=== PATIENT | female | born 1960 | race Caucasian/White ===

== ENCOUNTER → 2017-01-27 | Outpatient (CLI) | payer OTHER ==
--- NOTE | 2017-01-28 11:15 | MM ---
Reason for exam: screening (asymptomatic). Last mammogram was performed 1 year and 7 months ago. History: Patient is postmenopausal. Family history of breast cancer in mother at age 72. Taking progesterone for 9 years. Physical Findings: A clinical breast exam by your physician is recommended on an annual basis and results should be correlated with mammographic findings. MG Screening Mammo w CAD Bilateral CC and MLO view(s) were taken. Prior study comparison: June 19, 2015, bilateral MG screening mammo w CAD. September 06, 2013, bilateral digital screening mammo w/CAD. The breast tissue is heterogeneously dense. This may lower the sensitivity of mammography. No significant changes when compared with prior studies. ASSESSMENT: Benign, BI-RAD 2 RECOMMENDATION: Routine screening mammogram of both breasts in 1 year.
== END | disposition home or self-care (01) ==
LOC: RADMAMWWP 15:55
PROVIDERS: ATTEND Family Medicine
DX: Z12.31 Encounter for screening mammogram for malignant neoplasm of breast (principal)

== ENCOUNTER → 2017-03-20 | Outpatient (CLI) | payer OTHER ==
--- NOTE | 2017-03-20 16:06 | US ---
EXAMINATION TYPE: US thyroid st tissue head/neck DATE OF EXAM: 03/20/2017 COMPARISON: CLINICAL HISTORY: E04.2 Thyroid Nodule,E03.9 Thyroid Goiter. follow up nodules. hx of bx- wnl GLAND SIZE: Right Lobe: 4.9 x 2.3 x 1.8 cm Overall Parenchyma: heterogenous Left Lobe: 4.3 x 1.4 x 1.8 cm Overall Parenchyma: heterogeneous Isthmus Thickness: 1.2 cm NODULES RIGHT: # of nodules measured on right: 3 1. 1.0 X 1.0 x 0.9 cm hypoechoic mixed nodule at the upper pole with poorly defined margins. This nodule is wider than tall and shows intranodular vascularity. Prior size: 1.7 x 1.0 x 1.3 cm 2. 1.9 X 1.7 x 1.6 cm hypoechoic mixed nodule at the lower pole with poorly defined margins. This n odule is taller than wide and shows intranodular vascularity. Prior size: 1.5 x 1.0 x 1.7 cm 3. 1.0 X 0.7 x 0.8 cm echogenic solid nodule at the mid pole with poorly defined margins. This nodu le is taller than wide and shows peripheral vascularity. Prior size: 0.7 x 0.5 x 0.8 cm 4. Previous nodule not seen LEFT: # of nodules measured on left: 1 1. 1.3 X 0.9 x 0.6 cm hypoechoic mixed nodule at the lower pole with well-defined margins. This no dule is taller than wide and shows no intranodular vascularity. Prior size: not seen ISTHMUS: # of nodules measured in the isthmus: 1 1. 2.2 X 1.8 x 1.0 cm hypoechoic solid nodule at the mid pole with well-defined margins. This nodu le is taller than wide and shows intranodular vascularity. Prior size: 1.7 cm Bilateral neck scanned, no evidence of lymphadenopathy. IMPRESSION: Right lobe of the gland is diffusely heterogeneous, accurate assessment of nodule size is somewhat li mited, findings suggest multinodular goiter. There may be some interval increase in size in the domin ant right lobe nodule and isthmus nodule. Left lobe nodule is likely new.
== END | disposition home or self-care (01) ==
LOC: RADUSWWP 13:49
PROVIDERS: ATTEND Internal Medicine Endocrinology, Diabetes & Metabolism
DX: E04.2 Nontoxic multinodular goiter (principal)
CPT/HCPCS: 76536

== ENCOUNTER 2017-04-25 12:22 | Day surgery (SDC) | payer OTHER ==
--- NOTE | 2017-04-25 14:04 | US ---
ULTRASOUND GUIDED FNA THYROID BIOPSY: CLINICAL HISTORY: Request for a 1.9 cm right and 1.3 cm left thyroid nodule FINDINGS: The procedure was explained to the patient. The risks, complications, benefits and alternatives were discussed and any questions were answered. Informed consent was obtained. Patient was placed supin e on the ultrasound table and prepped and draped in the usual sterile fashion. Utilizing a 25 gauge needle, five passes were made into the each of the 2 requested nodules. Patient was stable throughout the procedure. Pathology is pending. All elements of maximal barrier technique were utilized. IMPRESSION: 1. Successful ultrasound guided FNA thyroid biopsy.
[2017-04-25 14:10] VITALS: RESP 16; TEMP 98.1
[2017-04-25 14:11] VITALS: BP 134/74
[2017-04-25 14:12] VITALS: PULSE 74
== END 2017-04-25 13:45 | disposition home or self-care (01) ==
LOC: RADPROMAIN 12:22
PROVIDERS: ATTEND Internal Medicine Endocrinology, Diabetes & Metabolism
DX: E04.2 Nontoxic multinodular goiter (principal); E03.9 Hypothyroidism, unspecified; E06.3 Autoimmune thyroiditis; E66.3 Overweight
CPT/HCPCS: 10022; 76942; 88173; 88305

== ENCOUNTER → 2017-12-23 | Outpatient (CLI) | payer OTHER ==
[2017-12-23 17:12] LABS: T4, Free (Free Thyroxine) 1.44 ng/dL (0.78-2.19)
== END | disposition home or self-care (01) ==
LOC: LABWHC1 15:52
PROVIDERS: ATTEND Internal Medicine Endocrinology, Diabetes & Metabolism
DX: E04.2 Nontoxic multinodular goiter (principal); E03.9 Hypothyroidism, unspecified; E06.3 Autoimmune thyroiditis; E66.3 Overweight
CPT/HCPCS: 36415; 84439; 84443

== ENCOUNTER → 2018-01-12 | Outpatient (CLI) | payer OTHER ==
--- NOTE | 2018-01-12 10:55 | US ---
EXAMINATION TYPE: US thyroid st tissue head/neck DATE OF EXAM: 01/12/2018 COMPARISON: US 2017 CLINICAL HISTORY: E03.9 Hypothyroidism,E06.3 Autoimmune thyroiditis. Follow up thyroid nodules, histo ry of multiple biopsies, on thyroid meds x 10 years. GLAND SIZE: Right Lobe: 5.2 x 1.7 x 2.2 cm Overall Parenchyma: heterogenous Left Lobe: 4.3 x 1.5 x 1.2 cm Overall Parenchyma: heterogeneous Isthmus Thickness: 0.6 cm NODULES RIGHT: # of nodules measured on right: 4 1. 1.1 X 0.8 x 0.9 cm hypoechoic mixed nodule at the lower pole with poorly defined margins. This n odule is wider than tall and shows intranodular vascularity. Prior size: 1.0 x 1.0 x 0.9 cm 2. 1.7 X 1.2 x 1.7 cm hypoechoic mixed nodule at the lower pole with poorly defined margins. This no dule is wider than tall and shows intranodular vascularity. Prior size: 1.9 x 1.7 x 1.6 cm 3. Previously biopsied- 1.0 X 0.7 x 0.8 cm echogenic solid nodule at the mid pole with poorly define d margins. This nodule is wider than tall and shows peripheral vascularity. Prior size: 1.0 x 0.7 x 0.8 cm 4. 0.7 X 0.5 x 0.7 cm hypoechoic mixed nodule at the lower pole with well-defined margins. This nodu le is wider than tall and shows no intranodular vascularity. Prior size: no previous LEFT: # of nodules measured on left: 0 1. previous nodule not seen on today's exam but has been previously biopsied. ISTHMUS: # of nodules measured in the isthmus: 1 1. 1.9 X 1.0 x 1.6 cm hypoechoic solid nodule at the mid pole with well-defined margins. This nodul e is wider than tall and shows intranodular vascularity. Prior size: 2.2 x 1.8 x 1.0 cm Bilateral neck scanned, no evidence of lymphadenopathy. IMPRESSION: Similar size of the bilateral thyroid nodules in comparison to the prior of 03/20/2017, 2 of which hav e been previously biopsied, with a solitary new subcentimeter right thyroid nodule in the setting of a multinodular goiter. Continued surveillance is recommended.
== END | disposition home or self-care (01) ==
LOC: RADUSWWP 09:39
PROVIDERS: ATTEND Internal Medicine Endocrinology, Diabetes & Metabolism
DX: E04.2 Nontoxic multinodular goiter (principal)
CPT/HCPCS: 76536

== ENCOUNTER 2018-03-26 08:34 | Day surgery (SDC) | payer OTHER ==
[2018-03-24 14:26] VITALS: BMI 25.0
[~2018-03-26 08:34] MED LIST: LACTATED RINGERS 1,000 ML IV SCH
[2018-03-26 09:42] VITALS: RESP 16; TEMP 97
[2018-03-26] MEDS ORDERED: LIDOCAINE 1% 20 ML VIAL (10MG/ML) FOR IV START INTRADERMA ONE (09:45)
[2018-03-26] MEDS ORDERED: PROPOFOL 10 MG/ML 20 ML VIAL IV ONE (10:32)
[2018-03-26] MEDS ORDERED: LIDOCAINE 1% INJ 10MG/ML (20 ML MDV) ONE (10:32)
--- NOTE | 2018-03-26 11:04 | P.PCN ---
Date of Procedure: 03/26/18 Procedure(s) Performed: Procedure: Total colonoscopy. Preoperative diagnosis: Positive cologuard test. Postoperative diagnosis: Sigmoid diverticulosis with no evidence of acute diverticulitis, strictures, polyps or cancer. Preparation: HalfLytely prep. Sedation: Was provided by anesthesia. Brief clinical history: The patient is a 57-year-old female who is scheduled for this evaluation because of finding of positive cologuard test. She had a prior colonoscopy around 10 years ago. The patient has no overt bleeding. She has no abdominal complaints or change in bowel habits or anemia. Procedure: With the patient on her left lateral decubitus position and after informed consent and adequate sedation, the perianal area was inspected and it did not show any fissures or fistulas. There were no masses felt on digital rectal examination. The Olympus CFQ 160L video colonoscope was then inserted in the rectum in the usual fashion and advanced to the cecum. There were several diverticular orifices seen scattered in the sigmoid but I saw no evidence of acute diverticulitis or strictures. No polyps or tumors were seen. The mucosa appeared healthy. I retroflexed the endoscope in the rectum before the endoscope was withdrawn The patient tolerated the procedure well. Plan: The patient was reassured. Discussed dietary measures. She will follow- up with you as planned. In the absence of upper GI complaints or anemia, I did not recommend upper GI workup at this time for further workup of her Hemoccult positive stools and that can be kept as a contingency based on her course. She will follow-up with you as planned and I recommended repeat colonoscopy in 10 years.
[2018-03-26 11:29] VITALS: BP 142/90; PULSE 76
== END 2018-03-26 11:45 | disposition home or self-care (01) ==
LOC: ORWHC2ENDO 08:34
DX: K57.30 Diverticulosis of large intestine without perforation or abscess without bleeding (principal); R19.5 Other fecal abnormalities; M19.90 Unspecified osteoarthritis, unspecified site; E07.9 Disorder of thyroid, unspecified; Z79.890 Hormone replacement therapy; Z79.899 Other long term (current) drug therapy; Z88.6 Allergy status to analgesic agent; Z88.8 Allergy status to other drugs, medicaments and biological substances; Z90.710 Acquired absence of both cervix and uterus
CPT/HCPCS: 45378; J2001; J2704

== ENCOUNTER → 2018-03-31 | Outpatient (CLI) | payer OTHER ==
--- NOTE | 2018-04-02 11:55 | MM ---
Reason for exam: screening (asymptomatic). Last mammogram was performed 1 year and 2 months ago. History: Patient is postmenopausal. Family history of breast cancer in mother at age 72. Taking progesterone for 9 years. Physical Findings: A clinical breast exam by your physician is recommended on an annual basis and results should be correlated with mammographic findings. MG Screening Mammo w CAD Bilateral CC and MLO view(s) were taken. Prior study comparison: January 27, 2017, bilateral MG screening mammo w CAD. June 19, 2015, bilateral MG screening mammo w CAD. The breast tissue is heterogeneously dense. This may lower the sensitivity of mammography. There is no discrete abnormality. No significant changes when compared with prior studies. ASSESSMENT: Negative, BI-RAD 1 RECOMMENDATION: Routine screening mammogram of both breasts in 1 year.
== END | disposition home or self-care (01) ==
LOC: RADMAMWWP 08:24
PROVIDERS: ATTEND Obstetrics & Gynecology
DX: Z12.31 Encounter for screening mammogram for malignant neoplasm of breast (principal); Z80.3 Family history of malignant neoplasm of breast
CPT/HCPCS: 77067

== ENCOUNTER → 2019-03-17 | Outpatient (CLI) | payer OTHER ==
--- NOTE | 2019-03-17 11:39 | P.STRESS ---
- Stress Test Note Stress Test Results/Findings: Exam Performed: stress test Exam Date: 03/17/19 Reason for Exam: CHEST PAIN Height: 5 ft 6 in Weight: 75.75 kg Protocol: LUCAS Stage: 3 Duration of Exercise: 8:00 Resting Heart Rate: 79 Resting Blood Pressure: 126/73 Maximum Achieved Heart Rate: 144 Maximum Achieved Blood Pressure: 195/78 85% PMHR: 136 100% PMHR: 160 METS: 9.7 Technologist Comment: Stress Test Results/Findings: Baseline heart rate 79 beats a minute, Baseline blood pressure 126/73 mmHg baseline 12-lead ECG shows sinus rhythm with normal cardiac intervals Patient exercised on a Lucas protocol for 8 minutes, achieving a peak heart rate 144 beats a minute normal blood pressure response to exercise There was no ECG evidence for ischemia no arrhythmias were noted Impression Average exercise capacity no ECG changes for ischemia.
== END | disposition home or self-care (01) ==
LOC: RADNMMAIN 08:43
PROVIDERS: ATTEND Family Medicine
DX: R07.9 Chest pain, unspecified (principal)
CPT/HCPCS: 93017

== ENCOUNTER → 2019-04-29 | Outpatient (CLI) | payer OTHER ==
--- NOTE | 2019-05-03 10:41 | MM ---
Reason for exam: screening (asymptomatic). Last mammogram was performed 1 year and 1 month ago. History: Patient is postmenopausal. Family history of breast cancer in mother at age 72. Taking progesterone for 9 years. Physical Findings: A clinical breast exam by your physician is recommended on an annual basis and results should be correlated with mammographic findings. MG Screening Mammo w CAD Bilateral CC and MLO view(s) were taken. Prior study comparison: March 31, 2018, bilateral MG screening mammo w CAD. January 27, 2017, bilateral MG screening mammo w CAD. There are scattered fibroglandular densities. Focal asymmetry left upper MLO view, stable. No significant changes when compared with prior studies. ASSESSMENT: Benign, BI-RAD 2 RECOMMENDATION: Routine screening mammogram of both breasts in 1 year.
== END ==
LOC: RADMAMWWP 11:52
PROVIDERS: ATTEND Family Medicine
DX: Z12.31 Encounter for screening mammogram for malignant neoplasm of breast (principal)
CPT/HCPCS: 77067

== ENCOUNTER → 2020-01-12 | Outpatient (CLI) | payer OTHER ==
--- NOTE | 2020-01-12 17:23 | US ---
EXAMINATION TYPE: US thyroid st tissue head/neck DATE OF EXAM: 01/12/2020 COMPARISON: US 01/12/2018 CLINICAL HISTORY: E03.9Hypothyroidism, unspecified, E06.3, E66.8. Difficult exam. Prior thyroid bx GLAND SIZE: Right Lobe: 5.2 x 1.7 x 1.9 cm Overall Parenchyma: heterogenous Left Lobe: 4.2 x 1.3 x 0.9 cm Overall Parenchyma: heterogeneous Isthmus Thickness: 0.4 cm NODULES RIGHT: # of nodules measured on right: Attempted to follow previous ultrasound(2018), however thing s looked different on today's exam. Multinodular goiter, nodule boarders difficult to visualized, dif fusely heterogeneous 1. 1.7 X 1.4 x 1.2 cm isoechoic solid nodule at the mid pole with poorly defined margins; . This no dule is wider than tall and shows intranodular vascularity. 2. 1.4 X 0.9 x 1.0 cm hypoechoic mixed nodule at the upper pole with poorly defined margins; . Thi s nodule is wider than tall and shows intranodular vascularity. 3. 1.1 X 1.0 x 1.0 cm hypoechoic mixed nodule at the lower pole with well-defined margins; . This n odule is wider than tall and shows no intranodular vascularity. 4. 1.0 X 0.9 x 1.0 cm isoechoic solid nodule at the mid pole with poorly defined margins; . This no dule is and shows intranodular vascularity. LEFT: # of nodules measured on left: 1 1. 0.5 X 0.4 x 0.4 cm hypoechoic cystic nodule at the mid pole with well-defined margins; . This n odule is wider than tall and shows no intranodular vascularity. Prior size: No previous ISTHMUS: # of nodules measured in the isthmus: 1 1. 2.0 X 1.0 x 1.3 cm hypoechoic solid nodule at the mid pole with well-defined margins; . This no dule is wider than tall and shows intranodular vascularity. Prior size: 1.9 x 1.0 x 1.6 cm Bilateral neck scanned, no evidence of lymphadenopathy. IMPRESSION: Findings consistent with multinodular goiter remain present with overall heterogeneous no rmal size thyroid redemonstrating multiple nodules up to 2.0 cm in size.
== END | disposition home or self-care (01) ==
LOC: RADUSWWP 14:51
PROVIDERS: ATTEND Internal Medicine Endocrinology, Diabetes & Metabolism
DX: E04.2 Nontoxic multinodular goiter (principal); E66.8 Other obesity
CPT/HCPCS: 76536

== ENCOUNTER → 2020-03-02 | Outpatient (CLI) | payer OTHER ==
[2020-03-02 23:37] LABS: T4, Free (Free Thyroxine) 1.5 ng/dL (0.80-1.80)
== END | disposition home or self-care (01) ==
LOC: LABWHC1 13:44
PROVIDERS: ATTEND Internal Medicine Endocrinology, Diabetes & Metabolism
DX: E03.9 Hypothyroidism, unspecified (principal); E04.2 Nontoxic multinodular goiter; E66.3 Overweight
CPT/HCPCS: 36415; 84439; 84443

== ENCOUNTER → 2020-07-12 | Outpatient (CLI) | payer OTHER ==
[2020-07-12 16:31] LABS: T4, Free (Free Thyroxine) 1.51 ng/dL (0.78-2.19)
--- NOTE | 2020-07-13 05:06 | US ---
EXAMINATION TYPE: US thyroid st tissue head/neck DATE OF EXAM: 07/12/2020 COMPARISON: 01/12/2020 CLINICAL HISTORY: 59-year-old female E03.9 Hypothyroidism unspecified. TECHNIQUE: Multiple sonographic images of the thyroid gland are obtained. FINDINGS: GLAND SIZE: Right Lobe: 4.7 x 1.7 x 1.8 cm Overall Parenchyma: Heterogeneous Left Lobe: 4.4 x 1.7 x 1.2 cm Overall Parenchyma: heterogeneous Isthmus Thickness: 7.9 mm NODULES RIGHT: # of nodules measured on right: 4 1. 1.7 X 1.6 x 1.1 cm solid or almost completely solid, isoechoic nodule, which is wider than tall, with ill-defined margins, without echogenic foci. Prior size: 1.7 x 1.4 x 1.2 cm 2. 1.2 X 0.8 x 1.1 cm solid or almost completely solid, isoechoic nodule, which is wider than tall, with ill-defined margins, without echogenic foci. Prior size: 1.4 x 0.9 x 1.0 cm 3. 1.3 X 1.1 x 1.3 cm spongiform, anechoic nodule, which is wider than tall, with smooth margins, w ithout echogenic foci. Prior size: 1.1 x 1.0 x 1.0 cm 4. 1.0 X 0.9 x 0.9 cm mixed cystic and solid, heterogeneous nodule, which is as tall as it is wide, with ill-defined margins, without echogenic foci. Prior size: 1.0 x 0.9 x 1.0 cm LEFT: # of nodules measured on left: 0 subcentimeter cyst noted ISTHMUS: 1. 2.0 X 1.1 x 0.9 cm solid or almost completely solid, anechoic nodule, which is taller than wide, w ith smooth margins, without echogenic foci. Prior size: 2.0 x 1.0 x 1.3 cm Bilateral neck scanned, no evidence of lymphadenopathy. IMPRESSION: 1. Findings likely represent multinodular goiter. 4 nodules measured on the right are not significant ly changed, largest measuring 1.7 x 1.6 cm (versus 1.7 x 1.4 cm, previously). 2. The solid isthmic nodule measuring 2.0 x 1.1 cm is also unchanged (2.0 x 1.3 cm, previously).
== END | disposition home or self-care (01) ==
LOC: RADUSWWP 15:03
PROVIDERS: ATTEND Internal Medicine Endocrinology, Diabetes & Metabolism
DX: E04.2 Nontoxic multinodular goiter (principal); E03.9 Hypothyroidism, unspecified; E66.3 Overweight
CPT/HCPCS: 76536; 84439; 84443

== ENCOUNTER → 2020-10-18 | Outpatient (CLI) | payer OTHER ==
[2020-10-18 17:42] LABS: T4, Free (Free Thyroxine) 1.7 ng/dL (0.80-1.80)
== END | disposition home or self-care (01) ==
LOC: LABWHC1 08:33
PROVIDERS: ATTEND Internal Medicine Endocrinology, Diabetes & Metabolism
DX: E04.2 Nontoxic multinodular goiter (principal)
CPT/HCPCS: 36415; 84439; 84443

== ENCOUNTER → 2021-02-15 | Outpatient (CLI) | payer OTHER ==
[2021-02-15 17:20] LABS: T4, Free (Free Thyroxine) 1.46 ng/dL (0.78-2.19)
--- NOTE | 2021-02-19 14:34 | MM ---
Reason for exam: screening (asymptomatic). Last mammogram was performed 1 year and 10 months ago. History: Patient is postmenopausal. Family history of breast cancer in mother at age 72. Taking progesterone for 9 years. Physical Findings: A clinical breast exam by your physician is recommended on an annual basis and results should be correlated with mammographic findings. MG 3D Screening Mammo W/Cad Bilateral CC and MLO view(s) were taken. Prior study comparison: April 29, 2019, bilateral MG screening mammo w CAD. March 31, 2018, bilateral MG screening mammo w CAD. The breast tissue is heterogeneously dense. This may lower the sensitivity of mammography. Probable rounded mole inferior medial left breast far posterior. No significant changes when compared with prior studies. ASSESSMENT: Benign, BI-RAD 2 RECOMMENDATION: Routine screening mammogram of both breasts in 1 year.
== END | disposition home or self-care (01) ==
LOC: RADMAMWWP 16:07
PROVIDERS: ATTEND Family Medicine
DX: Z12.31 Encounter for screening mammogram for malignant neoplasm of breast (principal); Z78.0 Asymptomatic menopausal state; Z80.3 Family history of malignant neoplasm of breast
CPT/HCPCS: 36415; 77063; 77067; 84439; 84443

== ENCOUNTER → 2021-02-22 | Outpatient (CLI) | payer OTHER ==
--- NOTE | 2021-02-23 09:40 | US ---
EXAMINATION TYPE: US thyroid st tissue head/neck DATE OF EXAM: 02/22/2021 COMPARISON: NONE CLINICAL HISTORY: E04.2 Nontoxic multinodular goiter. GLAND SIZE: Right Lobe: 5.0 x 1.9 x 2.7 cm Overall Parenchyma: heterogenous Left Lobe: 4.6 x 1.6 x 1.5 cm Overall Parenchyma: heterogeneous Isthmus Thickness: 0.5 cm NODULES RIGHT: # of nodules measured on right: 1. 1.5 X 0.9 x 1.2 cm, mid , mixed, hypoechoic nodule, which is wider than tall, with smooth margin s, without echogenic foci. Prior size: 1.3 x 1.1 x 1.3 cm 2. 1.9 X 1.2 x 1.5 cm, upper , solid, isoechoic nodule, which is wider than tall, with ill-defined margins, without echogenic foci. Prior size: 1.2 x 0.8 x 1.1 cm LEFT: # of nodules measured on left: 0 ISTHMUS: # of nodules measured in the isthmus: 1 1. 1.6 X 0.9 x 1.5 cm solid, nodule, which is wider than tall, with smooth margins, without echogen ic foci. Prior size: 2.0 x 1.1 x 0.9 cm Bilateral neck scanned, no evidence of lymphadenopathy. heterogenous thyroid gland, multiple nodules right lobe, largest, most distinct nodules measured IMPRESSION: Heterogeneous thyroid with multiple bilateral thyroid nodules which appear relatively similar to the prior examination. 2017 ACR TI-RADS LEVEL: TR-RADS 4 - Moderately Suspicious: Follow if > 1 cm, FNA if > 1.5 cm *Highest TI-RADS level nodule reported
== END | disposition home or self-care (01) ==
LOC: RADUSWWP 14:59
PROVIDERS: ATTEND Internal Medicine Endocrinology, Diabetes & Metabolism
DX: E04.2 Nontoxic multinodular goiter (principal)
CPT/HCPCS: 76536

== ENCOUNTER → 2022-02-04 | Outpatient (CLI) | payer OTHER ==
--- NOTE | 2022-02-04 12:51 | US ---
EXAMINATION TYPE: US thyroid st tissue head/neck DATE OF EXAM: 02/04/2022 COMPARISON: NONE CLINICAL HISTORY: E03.8 HYPOTHYROIDISM. Hypothyroidism. Thyroid medication x 13 years. GLAND SIZE: Right Lobe: 5.4 x 1.5 x 1.9 cm Overall Parenchyma: heterogenous Left Lobe: 4.9 x 1.3 x 1.7 cm Overall Parenchyma: heterogeneous Isthmus Thickness: 0.5 cm NODULES RIGHT: # of nodules measured on right: 3 1. 1.1 X 0.9 x 0.6 cm, mid lateral, mixed cystic and solid, hypoechoic nodule, which is wider than tall, with smooth margins, with echogenic foci. Prior size: 1.5 x 0.9 x 1.2 cm 2. 1.8 X 1.5 x 1.2 cm, mid lateral, solid or almost completely solid, hypoechoic nodule, which is w ider than tall, with ill-defined margins, without echogenic foci. Prior size: 1.9 x 1.2 x 1.5 cm 3. 2.0 X 1.6 x 1.8 cm, lower medial, solid or almost completely solid, hypoechoic nodule, which is taller than wide, with ill-defined margins, without echogenic foci. TR 4 Prior size: N/a LEFT: # of nodules measured on left: 0 ISTHMUS: # of nodules measured in the isthmus: 1 1. 2.2 X 1.3 x 1.1 cm solid or almost completely solid, isoechoic nodule, which is wider than tall, with smooth margins, without echogenic foci. TR 3 Prior size: 1.6 x 0.9 x 1.5 cm Bilateral neck scanned, no evidence of lymphadenopathy. IMPRESSION: Moderately suspicious nodule right lobe thyroid. Fine-needle aspiration recommended. 2017 ACR TI-RADS LEVEL: *Highest TI-RADS level nodule reported
== END | disposition home or self-care (01) ==
LOC: RADUSWWP 12:09
PROVIDERS: ATTEND Internal Medicine Endocrinology, Diabetes & Metabolism
DX: E03.8 Other specified hypothyroidism (principal)
CPT/HCPCS: 76536

== ENCOUNTER → 2022-02-27 | Outpatient (CLI) | payer OTHER ==
--- NOTE | 2022-03-01 07:48 | MM ---
Reason for Exam: Screening (asymptomatic). Last screening mammogram was performed 12 month(s) ago. Patient History: Menarche at age 9. First Full-Term at age 23. Hysterectomy at age 36. Postmenopausal. Currently using Progesterone, for 9 years. Mother had breast cancer. Risk Values: Vita 5 year model risk: 3.4%. NCI Lifetime model risk: 13.9%. Prior Study Comparison: 03/31/2018 Bilateral Screening Mammogram, [facility]. 04/29/2019 Bilateral Screening Mammogram, [facility]. 02/15/2021 Bilateral Screening Mammogram, [facility]. Tissue Density: The breast tissue is heterogeneously dense. This may lower the sensitivity of mammography. Findings: Analyzed By CAD. There is no suspicious group of microcalcifications or new suspicious mass in either breast. Overall Assessment: Benign, BI-RAD 2 Management: Screening Mammogram of both breasts in 1 year. A clinical breast exam by your physician is recommended on an annual basis and results should be correlated with mammographic findings. Electronically signed and approved by: Tommie Snider M.D. Radiologis
== END | disposition home or self-care (01) ==
LOC: RADMAMWWP 09:44
PROVIDERS: ATTEND Family Medicine
DX: Z12.31 Encounter for screening mammogram for malignant neoplasm of breast (principal); Z78.0 Asymptomatic menopausal state; Z80.3 Family history of malignant neoplasm of breast
CPT/HCPCS: 77063; 77067

== ENCOUNTER → 2023-01-09 | Outpatient (CLI) | payer OTHER | END | disposition home or self-care (01) | LOC: LABWHC1 11:00 | PROVIDERS: ATTEND Internal Medicine Endocrinology, Diabetes & Metabolism | DX: E03.8 Other specified hypothyroidism (principal) | CPT/HCPCS: 36415; 84443 ==

== ENCOUNTER → 2024-03-09 | Outpatient (CLI) | payer OTHER ==
--- NOTE | 2024-03-11 12:05 | MM ---
Reason for Exam: Screening (asymptomatic). Last screening mammogram was performed 12 month(s) ago. Patient History: Menarche at age 9. First Full-Term at age 23. Hysterectomy at age 36. Postmenopausal. Patient has history of breast feeding. Mother had breast cancer, age 75. Risk Values: Ivta 5 year model risk: 3.6%. NCI Lifetime model risk: 13.1%. Prior Study Comparison: 02/15/2021 Bilateral Screening Mammogram, [facility]. 02/27/2022 Bilateral MG 3D screening mammo w/cad, [facility]. 02/28/2023 Bilateral MG 3D screening mammo w/cad, [facility]. Tissue Density: The breasts are heterogeneously dense, which may obscure small masses. Findings: Analyzed By CAD. There is no suspicious group of microcalcifications or new suspicious mass in either breast. Overall Assessment: Benign, BI-RAD 2 Management: Screening Mammogram of both breasts in 1 year. . Patient should continue monthly self-breast exams. A clinical breast exam by your physician is recommended on an annual basis. This exam should not preclude additional follow-up of suspicious palpable abnormalities. Note on Vita scores and lifetime risk: 1. A Vita score greater than 3% is considered moderate risk. If this is the case, consider specialist referral to assess eligibility for a risk reducing agent. 2. If overall lifetime risk for the development of breast cancer is 20% or higher, the patient may qualify for future screening with alternating mammogram and breast MRI. Electronically signed and approved by: Tommie Snider M.D. Radiologis
== END | disposition home or self-care (01) ==
LOC: RADMAMWWP 11:30
PROVIDERS: ATTEND Family Medicine
DX: Z12.31 Encounter for screening mammogram for malignant neoplasm of breast (principal); R92.333 Mammographic heterogeneous density, bilateral breasts; Z78.0 Asymptomatic menopausal state; Z80.3 Family history of malignant neoplasm of breast
CPT/HCPCS: 77063; 77067